=== PATIENT | female | born 1980 | race African-American/Black ===

== ENCOUNTER 2016-08-11 07:16 | Emergency (ER) ==
[2016-08-11 07:27] VITALS: BP 153/097
[2016-08-11] MEDS ORDERED: DUONEB (A & A) INH ONE (07:49)
--- NOTE | 2016-08-11 08:25 | PROVIDER DOCUMENTATION ---
HPI-Respiratory General - General Chief Complaint: Cold Symptoms Stated Complaint: COLD SX/ABD PAIN Time Seen by Provider: 08/11/16 07:47 Allergies/Adverse Reactions: Patient Allergies Allergy/AdvReac Type Severity Reaction Status Date / Time No Known Allergies Allergy Verified 07/02/16 06:19 Home Medications: Home Medication List Medication Instructions Recorded Confirmed Last Taken Type Amlodipine [Norvasc] 10 mg PO DAILY 05/24/16 07/02/16 07/01/16 08:00 History Cyclobenzaprine [Flexeril] 10 mg PO TID 05/24/16 07/02/16 07/01/16 08:00 History Ergocalciferol (Vitamin D2) 1.25 mg PO QHS 05/24/16 07/02/16 Unknown History [Vitamin D2] Fluticasone 50 Mcg Nasal [place] 1 spray BUDDY DAILY 05/24/16 07/02/16 06/30/16 History [Flonase] LISINOpril [Prinivil] 5 mg PO DAILY 05/24/16 07/02/16 07/01/16 08:00 History Lovastatin 10 mg PO DAILY 05/24/16 07/02/16 07/01/16 08:00 History Metformin [Glucophage] 500 mg PO WBREAKFAST 05/24/16 07/02/16 07/01/16 08:00 History Hydrocortisone 2.5% Cream 0 gm [place] BID #1 tube 05/27/16 07/02/16 06/30/16 Rx [Anusol-Hc Cream] Iron Carbonyl/Ascorbic Acid 1 each PO BID #60 tablet 05/27/16 07/02/16 07/01/16 08:00 Rx [Icar-C] Pantoprazole Sodium [Protonix] 40 mg PO DAILY #30 tablet. 05/27/16 07/02/16 08:00 Rx Polyethylene Glycol 3350 [Miralax] 17 gm PO QHS #1 powd.pack 05/27/16 07/02/16 06/30/16 Rx Docusate Sodium [Colace] 100 mg PO BID #60 capsule 07/04/16 Unknown Rx Hydroxyzine 25 mg PO Q6H PRN PRN #30 tablet 07/04/16 Unknown Rx Ibuprofen 800 mg PO Q6H PRN PRN #30 tablet 07/04/16 Unknown Rx Oxycodone/APAP 5 mg/325 mg 1 each PO Q4H PRN PRN #30 tablet 07/04/16 Unknown Rx [Percocet-5] Guaifenesin/Codeine [Robitussin-AC] 10 ml PO Q4H PRN PRN #6 oz 08/11/16 Unknown Rx - History of Present Illness-Resp Nature of Presenting Problem: cold cough for week nonsmoker Quality of Pain: reports: none Onset/Duration: reports: 1 week ago Timing: reports: intermittent Context: reports: recent URI Cough Quality/Degree: reports: productive cough Episode Frequency: occasional episodes Current Respiratory Medication Therapy: Initiated albuterol Modifying Factors: improves with: albuterol inhaler Associated Symptoms: reports: cough, wheezing Similar Symptoms Previously?: Yes Recently seen or treated by another doctor?: No Review of Systems - Adult - REVIEW OF SYSTEMS - ADULT Constitutional: denies: chills, fever Eyes: reports: no symptoms reported. denies: discharge, redness Ears, Nose, Mouth & Throat: denies: ear pain, epistaxis, sinus problem, throat pain Cardiovascular: reports: no symptoms reported Respiratory: reports: shortness of breath Gastrointestinal: reports: no symptoms reported Genitourinary: reports: no symptoms reported Musculoskeletal: reports: no symptoms reported Integumentary: reports: no symptoms reported Neurological: reports: no symptoms reported Endocrine: reports: no symptoms reported Hematologic/Lymphatic: reports: no symptoms reported Allergic/Immunologic: reports: no symptoms reported Past History - Adult - PAST MEDICAL HISTORY-ADULT Review of Records: reports: Nursing Assessment Review, Medications Reviewed, Social history reviewed & non-contributory. Cardiovascular: reports: HTN Endocrine/Immune: reports: anemia, Diabetes - PRIOR SURGERIES/PROCEDURES Surgical/Procedure History: reports: BTL, (x 2) - PRIOR HOSPITALIZATIONS Prior Hospitalizations: reports: for other non-related - IMMUNIZATION STATUS Childhood Immunizations: See Nurse Assessment Flu Vaccine: See Nurse Assessment Physical Exam-General - PHYSICAL EXAM-ADULT Initial Vital Signs Reviewed: Yes - CONSTITUTIONAL General Appearance: appears well - EYES Eyes: PERRL/EOMI, pink conjunctivae - HEAD, EARS, NOSE, MOUTH & THROAT HENMT: normocephalic/atraumatic, moist mucous membranes, normal ENT inspection, TMs normal, pharynx normal - NECK Neck: full range of motion - RESPIRATORY Respiratory: lungs clear - CARDIOVASCULAR Cardiovascular: regular rate, rhythm - GASTROINTESTINAL (ABDOMEN) Abdominal Exam: normal bowel sounds, non tender, soft - MUSCULOSKELETAL Back Exam: normal inspection Extremity: non-tender - SKIN Integumentary: normal color, normal turgor - NEUROLOGIC Neurologic: grossly normal - PSYCHIATRIC Psych/Mental Status: normal mood/affect Progress - PLAN OF CARE/RESULTS Progress/Plan/Lab Results: Laboratory Tests 08/11/16 07:48 Influenza A (Rapid) NEGATIVE Influenza B (Rapid) NEGATIVE - XRAY 1 XRAY Study: Chest Impression: Normal Departure - Departure Time of Disposition Order: 08:25 DIAGNOSIS: URI (upper respiratory infection) Qualifiers: URI type: unspecified viral URI Qualified Code(s): J06.9 - Acute upper respiratory infection, unspecified; B97.89 - Other viral agents as the cause of diseases classified elsewhere Disposition: HOME 01 Certified Medical Emergency: Emergent Condition: Stable Prescriptions: Guaifenesin/Codeine [Robitussin-AC] 10 ml PO Q4H PRN PRN #6 oz PRN Reason: Cough
--- NOTE | 2016-08-11 10:53 | Diag Imaging Result Document ---
PROCEDURE NAME: CHEST-2 VIEWS - 08/11/2016 TWO VIEWS OF THE CHEST: FINDINGS: There is no evidence of acute cardiac or pulmonary disease. There are no previous studies. IMPRESSION: No acute disease.
--- NOTE | 2016-08-11 14:10 | PROVIDER DOCUMENTATION ---
HPI-Respiratory General - General Chief Complaint: Cold Symptoms Stated Complaint: COLD SX/ABD PAIN Time Seen by Provider: 08/11/16 07:47 Source: patient Allergies/Adverse Reactions: Patient Allergies Allergy/AdvReac Type Severity Reaction Status Date / Time No Known Allergies Allergy Verified 07/02/16 06:19 Home Medications: Home Medication List Medication Instructions Recorded Confirmed Last Taken Type Amlodipine [Norvasc] 10 mg PO DAILY 05/24/16 07/02/16 07/01/16 08:00 History Cyclobenzaprine [Flexeril] 10 mg PO TID 05/24/16 07/02/16 07/01/16 08:00 History Ergocalciferol (Vitamin D2) 1.25 mg PO QHS 05/24/16 07/02/16 Unknown History [Vitamin D2] Fluticasone 50 Mcg Nasal [place] 1 spray BUDDY DAILY 05/24/16 07/02/16 06/30/16 History [Flonase] LISINOpril [Prinivil] 5 mg PO DAILY 05/24/16 07/02/16 07/01/16 08:00 History Lovastatin 10 mg PO DAILY 05/24/16 07/02/16 07/01/16 08:00 History Metformin [Glucophage] 500 mg PO WBREAKFAST 05/24/16 07/02/16 07/01/16 08:00 History Hydrocortisone 2.5% Cream 0 gm [place] BID #1 tube 05/27/16 07/02/16 06/30/16 Rx [Anusol-Hc Cream] Iron Carbonyl/Ascorbic Acid 1 each PO BID #60 tablet 05/27/16 07/02/16 07/01/16 08:00 Rx [Icar-C] Pantoprazole Sodium [Protonix] 40 mg PO DAILY #30 tablet.dr 05/27/16 07/02/16 08:00 Rx Polyethylene Glycol 3350 [Miralax] 17 gm PO QHS #1 powd.pack 05/27/16 07/02/16 06/30/16 Rx Docusate Sodium [Colace] 100 mg PO BID #60 capsule 07/04/16 Unknown Rx Hydroxyzine 25 mg PO Q6H PRN PRN #30 tablet 07/04/16 Unknown Rx Ibuprofen 800 mg PO Q6H PRN PRN #30 tablet 07/04/16 Unknown Rx Oxycodone/APAP 5 mg/325 mg 1 each PO Q4H PRN PRN #30 tablet 07/04/16 Unknown Rx [Percocet-5] Past History - Adult - PAST MEDICAL HISTORY-ADULT Cardiovascular: reports: HTN Endocrine/Immune: reports: anemia, Diabetes - PRIOR SURGERIES/PROCEDURES Surgical/Procedure History: reports: BTL, (x 2) - PRIOR HOSPITALIZATIONS Prior Hospitalizations: reports: for other non-related - IMMUNIZATION STATUS Childhood Immunizations: See Nurse Assessment Flu Vaccine: See Nurse Assessment
== END 2016-08-11 08:54 | disposition home or self-care (01) ==
LOC: P.ED 07:16
DX: J06.9 Acute upper respiratory infection, unspecified (principal); R05 Cough; R06.2 Wheezing; R06.02 Shortness of breath; I10 Essential (primary) hypertension; E11.9 Type 2 diabetes mellitus without complications; Z79.899 Other long term (current) drug therapy; Z79.51 Long term (current) use of inhaled steroids
CPT/HCPCS: 71020; 87804; 94640; 99283